=== PATIENT | female | born 1960 | race Caucasian/White ===

== ENCOUNTER 2022-12-25 14:41 | Outpatient (CLI) | payer BC, SELFPAY ==
--- NOTE | 2022-12-25 15:00 | CRLHL7_ITS ---
For Patients: As a result of the Century Cures Act, medical imaging exams and procedure reports are released immediately into your electronic medical record. You may view this report before your referring provider. If you have questions, please contact your health care provider. BILATERAL SCREENING MAMMOGRAM WITH COMPUTER-AIDED DETECTION AND TOMOSYNTHESIS TECHNIQUE: CC and MLO views were obtained. These mammographic images have been obtained using full-field digital technique. These mammographic images were interpreted with the benefit of computer-aided detection. Breast Tomosynthesis was used in this interpretation. COMPARISON FILM: 12/01/21, 07/26/20, 07/21/19. FINDINGS: The breasts are almost entirely fatty IMPRESSION: There is no radiographic evidence for malignancy. ASSESSMENT: BI-RADS Category 1: Negative RECOMMENDATION: Routine screening mammogram in 1 year. A lay language report of this examination will be provided to the patient. Lyndon Mackenzie M.D. Diagnostic/Nuclear Medicine Radiologist [email or web address] BRADLY/Dictated by: Lyndon Mackenzie MD @ 12/28/2022 8:08:00 AM (Electronically Signed)
== END 2022-12-25 14:42 | disposition home or self-care (01) ==
LOC: MAMMO 14:43
PROVIDERS: PCP Family Medicine; Visit Provider Family Medicine
DX: Z12.31 Encounter for screening mammogram for malignant neoplasm of breast (principal)
CPT/HCPCS: 77063; 77067

== ENCOUNTER 2022-12-30 07:34 | Outpatient (CLI) | payer BC, SELFPAY | END 2022-12-30 07:35 | disposition home or self-care (01) | LOC: NFLDREF 11:55 | PROVIDERS: PCP Family Medicine; Referring Provider Family Medicine; Visit Provider Family Medicine | DX: E53.8 Deficiency of other specified B group vitamins (principal); E03.9 Hypothyroidism, unspecified; I10 Essential (primary) hypertension; E78.5 Hyperlipidemia, unspecified; M19.90 Unspecified osteoarthritis, unspecified site; Z79.1 Long term (current) use of non-steroidal anti-inflammatories (NSAID) | CPT/HCPCS: 80053; 80061; 82306; 82607; 84443 ==

== ENCOUNTER 2023-06-30 09:18 | Outpatient (CLI) | payer BC, SELFPAY ==
--- OUTSIDE RECORDS SUMMARY | 2023-06-30 09:22 | XMS_ITS | Continuity of Care Document ---
Author Name Unknown Organization [facility] Address [address] [place] [address] Phone Care Team Providers Care Leather Parts Matcher Name Role Phone Shyla Del Cid MD Unavailable Unavailable Medications Medication Instructions Dosage Effective Dates (start - stop) Status Comments NASACORT AQ (unknown strength) Not Available - Active LOSARTAN POTASSIUM (unknown strength) Not Available - Active Procedures Procedure Date Office/Outpatient Visit,[facility], [facility] [place] X-Ray Exam Lower Spine 2-3 Views 2013 Office/outpatient visit,est, low 2007 Office consultation, moderate 8 X-ray exam lwr spine, min 4 views Advance Directives Directive Yes / No Effective Date File Name No Information Encounters Encounter Description Practice Location Reason(s) For Visit Diagnoses Date Provider Providers Copied on Encounter [facility], [address], [place], [place], [id number], [place] tel:[phone] [facility] No Information 6 Nehemias Mansfield. [facility], [address], [place], [place], [address] , [place]. tel:[phone] Office/Outpat ient Visit,[facility], [facility] Z [facility], [address], [place], [address], [place] tel:[phone] RUPAL - Cheli LOZOYA 2201 4 Danya Glynn. [facility], [address], [place], [address], [place]. tel:[phone] Office/outpat ient visit,est, low Z [facility], [address] [place], [place] [address], [place], [address], [place] tel:[phone] [employer] No Information Oct-2 200 8 Mehbod Anastasiiar. [facility], [address] [place] [address] [address], [place], [place], [address] , [place]. tel:[phone] Referring Provider: Shyla Del Cid, [facility] [address], [place], [address] . tel:[phone] Office consultation, moderate Z [facility], [address] [place] [address] [address], [place], [place], [facility], [place] tel:[phone] [employer] No Information Aug- 8 hbharry Samaniego [facility], [address] [place] [address] [address], [place], [place], [id number] , [place]. tel:[phone] Referring Provider: Shyla Del Cid, [facility] [address], [place], [address] . tel:[phone] Family History Family Member Type Diagnosis Age At Onset Problem (finding) Payers Payer name Insurance type Covered democrat ID Authoriza tion(s) No Information Social History Type Description Quantity Date Captured Comments Sex Female Smoking Status No Information Chief Complaint And Reason For Visit No Information Reason For Referral Reason For Referral No Information History Of Present Illness Encounter Date Complaint History Of Prese nt Illness No Information Functional Status Date Functional Assessmen t No Information Instructions Date Instruction Additional Infor mation No Information Assessments Type Assessment Date No Information Patient Care Teams Name Effective Dates (start - stop) Status Members No Information
== END 2023-06-30 09:19 | disposition home or self-care (01) ==
PROVIDERS: PCP Family Medicine; Visit Provider Family Medicine
DX: I10 Essential (primary) hypertension (principal); E03.9 Hypothyroidism, unspecified; E53.8 Deficiency of other specified B group vitamins
CPT/HCPCS: 80048; 84443

== ENCOUNTER 2024-01-17 07:29 | Outpatient (CLI) | payer BC, SELFPAY ==
--- OUTSIDE RECORDS SUMMARY | 2024-01-17 07:32 | XMS_ITS | Clinical Summary ---
Author Organization [employer] [facility] Address [place], [place] [address] Care Team Providers Care Ship'S Captain Name Role Phone Domonique Powell MD Primary Care Provider + Allergies No known active allergies Medications Medication Sig Dispensed Refills Start Date End Date Status celecoxib (CELEBREX) 200 mg capsule Take 1 capsule by mouth once daily with a meal. 30 capsule 0 08/08/2015 Active losartan (COZAAR) 25 mg tablet Take 1 tablet by mouth once daily. 0 08/08/2015 Active levothyroxine (SYNTHROID) 50 mcg tablet Take 1 tablet by mouth before breakfast. 0 08/08/2015 Active triamcinolone, 55 mcg each actuation, nasal (NASACORT) 55 mcg nasal spray Inhale 2 Sprays into both nostrils once daily. 16.5 g 0 08/08/2015 Active metroNIDAZOLE (METROGEL) 1 % gel Apply topically to affected area(s) once daily. 45 g 0 08/08/2015 Active mesalamine (CANASA) 1,000 mg suppositoryIndicati ons:Ulcerative (chronic) proctitis, without complications (HC) Insert 1 Suppository rectally at bedtime. 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 08/09/2015 Overview: Colonoscopy 07/2015 ulcerative proctitis repeat in 10 years Screen for colon cancer 07/14/2012 Overview: Colonoscopy 07/2012 normal repeat in 10 years Immunizations Name Administration Dates Next Due Influenza, IIV3 (Age >=3 years) 06/17/2015 Pneumococcal conj 13-Valent (Prevnar 13) 015 Tdap 11/26/2014 Social History Tobacco Use Types Packs/Day Years Used Date Smoking Tobacco: Former Smokeless Tobacco: Never Tobacco Cessation:Counseling Given: Yes Alcohol Use Standard Drinks/Week Comments Not Asked 0 (1 standard drink = 0.6 oz pur e alcohol) Sex and Gender Information Value Date Recorded Sex Assigned at Not on file Gender Identity Not on file Sexual Orientation Not on file Obstetrics History Last Filed Vital Signs Vital Sign Reading Time Taken Comments Blood Pressure 101/64 08/08/2015 8:18 AM CITY CARRIER Pulse 63 08/08/2015 8:18 AM CITY CARRIER Temperature - - Respiratory Rate - - Oxygen Saturation 100% 08/08/2015 8:18 AM CITY CARRIER Inhaled Oxygen Concentration - - Weight - - Height - - Body Mass Index - - Plan of Treatment Health Maintenance Due Date Last Done Comments Depression screening for age 12+ 1971 HIV for age 15-65 1974 BMI (ht and wt on same day) for age 18+ 1977 Hepatitis C screening for age 18-79 1977 Lipids for age 45-75 2004 Mammogram for age 45-75 2004 Zoster (shingles) series for age 50+ (1 of 2) 2009 Pap test for age 21-65 06/29/2022 9, 06/29/2019, 11/26/2014, Additional history exists COVID-19 vaccine series (2022- season) 2023 Influenza for age 50-64 03/12/2024 06/17/2015 Tetanus booster 11/26/2024 11/26/2014 Colonoscopy through age 75 08/08/202508/08, 08/08/2015, 07/14/2012, Additional history exists Pneumococcal series for age 6-64 Aged Out 11/26/2014 No longer eligible based on patient's age to complete this topic Tdap Completed 11/26/2014 Procedures Procedure Name Priority Date/Time Associated Diagnosis Comments LOG CUT OFF SAWYER THIN PREP PAP SCREEN IMAGED Routine 06/29/2019 3:30 PM CITY CARRIER from Last 3 Months or Most Recently Relevant to Health Maintenance Results * LOG CUT OFF SAWYER THIN PREP PAP SCREEN IMAGED (06/29/2019 3:30 PM CITY CARRIER) Case Report Gynecologic Cytology Report ? Case: [id number] ? Authorizing Provider: ??Domonique Powell MD ??Collected: ? 06/29/2019 1530 ? Ordering Location: ? [facility] ?Received: ?07/03/2019 0925 ? First Screen: ?Gloria Summers ? Specimen: ?LOG CUT OFF SAWYER ThinPrep Vial Screening, Cervical/Vaginal ? 07/17/2019 10:33 AM [facility] INTERPRETATION/ RESULT NEGATIVE FOR INTRAEPITHELIAL LESION OR MALIGNANCY (NIL) (none) 07/17/2019 10:33 AM [facility] IMEN ADEQUACY Satisfactory for evaluation Endocervical cells cannot be evaluated due to severe atrophy 07/17/2019 10:33 AM [facility] HPV REQUEST HPV and PAP 07/17/2019 10:33 AM [facility] Menstrual Status 07/17/2019 10:33 AM [facility] Comment:menopause Additional Information 07/17/2019 10:[address] [facility] Comment: Interpreted at [facility] - [address], [place] [address] Automated Review Successful 07/17/2019 10:[address] [facility] Comment:Specimen processed s uccessfully by automated pharmacologist device, CitizenginePrep Imaging System, [employer] ANCILLARY TESTING LOG CUT OFF SAWYER HPV Ordered, Please see separate report 07/17/2019 10:[address] [facility] Note The pap test is a screening technique, not a diagnostic procedure. It is used primarily to screen for squamous cancers and precursor lesions. Published studies have shown that it is subject to both false negative and false positive results. The pap test should not be used as the sole means to diagnose or exclude pre-malignant and malignant lesions. 07/17/2019 10:33 AM [facility] Other (Cervical/Vagina l) 06/29/2019 3:30 PM CITY CARRIER 07/03/2019 9:25 AM CITY CARRIER Domonique Powell MD PATHOLOGY/CYTOLO GY [facility] [address] [place] [address], [place] from Last 3 Months or Most Recently Relevant to Health Maintenance Care Teams Ship'S Captain Relationship Specialty Start Date End Date Domonique Powell MD [address] [place] [address] PCP - General Family Practice 02/04/18
--- OUTSIDE RECORDS SUMMARY | 2024-01-17 07:32 | XMS_ITS | Continuity of Care Document ---
Author Organization [facility] Address [address] [place] [address] Phone Care Team Providers Care Dance Artist Name Role Phone Shyla Del Cid MD Unavailable Unavailable Medications Medication Instructions Dosage Effective Dates (start - stop) Status Comments LOSARTAN POTASSIUM (unknown strength) Not Available - Active NASACORT AQ (unknown strength) Not Available - Active Procedures Procedure Date Office/Outpatient Visit,[facility] 2013 X-Ray Exam Lower Spine 2-3 Views 2013 Office/outpatient visit,est, low 2007 Office consultation, moderate 8 X-ray exam lwr spine, min 4 views Advance Directives Directive Yes / No Effective Date File Name No Information Encounters Encounter Description Practice Location Reason(s) For Visit Diagnoses Date Provider Providers Copied on Encounter [facility], [address], [place], [place], [id number], [place] tel:[phone] [facility] No Information 6 Nehemias Mansfield. [facility], [address] [place] [address] [address], [place], [place], [address] , [place]. tel:[phone] Office/Outpat ient Visit,[facility] Z [facility], [address], [place], [address], [place] tel:[phone] RUPAL - Piper LUMBAGO 2 4 Danya Glynn. [facility], [address], [place], [address], [place]. tel:[phone] Office/outpat ient visit,est, low Z [facility], [address] [place], [place] [address] [address], [place], [address], [place] tel:[phone] [facility] No Information Oct-200 8 Nehemias Laurentr. [facility], [address] [place] [address] [address], [place], [place], [id number] , [place]. tel:[phone] Referring Provider: Shyla Del Cid, [facility] [address], [place], [address] . tel:[phone] Office consultation, moderate Z [facility], [address] [place], [place] [address], [place], [place], [facility], [place] tel:[phone] [facility] No Information 8 Neheimas Samaniego [facility], [address] [place] [address] [address], [place], [place], [address] , [place]. tel:[phone] Referring Provider: Shyla Del Cid, [facility] [address], [place], [address] . tel:[phone] Family History Family Member Type Diagnosis Age [...]
--- NOTE | 2024-01-17 07:45 | CRLHL7_ITS ---
For Patients: As a result of the Cures Act, medical imaging exams and procedure reports are released immediately into your electronic medical record. You may view this report before your referring provider. If you have questions, please contact your health care provider. BILATERAL SCREENING MAMMOGRAM WITH COMPUTER-AIDED DETECTION AND TOMOSYNTHESIS TECHNIQUE: CC and MLO views were obtained. These mammographic images have been obtained using full-field digital technique. These mammographic images were interpreted with the benefit of computer-aided detection. Breast Tomosynthesis was used in this interpretation. COMPARISON FILM: 12/25/22, 12/01/21, 07/26/20. FINDINGS: The breasts are almost entirely fatty. IMPRESSION: There is no radiographic evidence for malignancy. ASSESSMENT: BI-RADS Category 1: Negative RECOMMENDATION: Routine screening mammogram in 1 year. A lay language report of this examination will be provided to the patient. Lyndon Mackenzie M.D. Diagnostic/Nuclear Medicine Radiologist [email or web address] JEN/pillo SP/Dictated by: Lyndon Mackenzie MD @ 01/20/2024 8:30:00 AM (Electronically Signed)
== END 2024-01-17 07:30 | disposition home or self-care (01) ==
LOC: MAMMO 07:30
PROVIDERS: PCP Family Medicine; Visit Provider Family Medicine
DX: Z12.31 Encounter for screening mammogram for malignant neoplasm of breast (principal); Z00.00 Encounter for general adult medical examination without abnormal findings; R03.0 Elevated blood-pressure reading, without diagnosis of hypertension; E53.8 Deficiency of other specified B group vitamins; E78.5 Hyperlipidemia, unspecified; I10 Essential (primary) hypertension; E03.9 Hypothyroidism, unspecified; R79.89 Other specified abnormal findings of blood chemistry; R53.83 Other fatigue; M85.852 Other specified disorders of bone density and structure, left thigh; Z79.1 Long term (current) use of non-steroidal anti-inflammatories (NSAID); R74.8 Abnormal levels of other serum enzymes
CPT/HCPCS: 77063; 77067; 80053; 80061; 82306; 82607; 84443

== ENCOUNTER 2024-02-10 14:12 | Outpatient (CLI) | payer BC, SELFPAY ==
--- OUTSIDE RECORDS SUMMARY | 2024-02-10 14:22 | XMS_ITS | Continuity of Care Document ---
Author Organization [facility] Address [address] [place] [address] Phone Care Team Providers Care Cellophane Wrapping Examiner Name Role Phone Shyla Del Cid MD Unavailable Unavailable Medications Medication Instructions Dosage Effective Dates (start - stop) Status Comments NASACORT AQ (unknown strength) Not Available - Active LOSARTAN POTASSIUM (unknown strength) Not Available - Active Procedures Procedure Date Office/Outpatient Visit,[facility] 2013 X-Ray Exam Lower Spine 2-3 Views 2013 Office/outpatient visit,est, low 2007 Office consultation, moderate 8 X-ray exam lwr spine, min 4 views Advance Directives Directive Yes / No Effective Date File Name No Information Encounters Encounter Description Practice Location Reason(s) For Visit Diagnoses Date Provider Providers Copied on Encounter [facility], [address], [place], [place], [id number], [place] tel:[phone] 2010 [facility] No Information 6 Nehemias Mansfield. [facility], [address] [place] [address] [address], [place], [place], [address] , [place]. tel:[phone] Office/Outpat ient Visit,[facility] Z [facility], [address], [place], [address], [place] tel:[phone] RUPAL - Piper LUMBAGO 2 4 Danya Glynn. [facility], [address], [place], [address], [place]. tel:[phone] Office/outpat ient visit,est, low Z [facility], [address] [place], [place] [address] [address], [place], [address], [place] tel:[phone] [employer] No Information Oct-200 8 Nehemias Laurentr. [facility], [address] [place] [address] [address], [place], [place], [id number] , [place]. tel:[phone] Referring Provider: Shyla Del Cid, [facility] [address], [place], [address] . tel:[phone] Office consultation, moderate Z [facility], [address] [place], [place] [address] [address], [place], [place], [facility], [place] tel:[phone] [employer] No Information 8 Nehemias Samaniego [facility], [address] [place] [address] [address], [place], [place], [id number] , [place]. tel:[phone] Referring Provider: Shyla Del Cid, [facility] [address], [place], [address] . tel:[phone] Family History Family Member Type Diagnosis Age At Onset Problem (finding) Payers Payer name Insurance type Covered libertarian ID Authoriza tion(s) No Information Social History [...]
--- OUTSIDE RECORDS SUMMARY | 2024-02-10 14:22 | XMS_ITS | Clinical Summary ---
Author Organization [employer] [facility] Address [place], [place] [address] Care Team Providers Care Door Attendant Name Role Phone Domonique Powell MD Primary [...] Colonoscopy 07/2012 normal repeat in 10 years Encounters Date Type Department Care Team Description 02/10/2024 Telephone [facility] [address] [place], [place] [id number] Clinic, No Pcp Or Screening (COUGH/TB) 02/09/2024 Transcribe Orders [facility] [address] [place], [place] [id number] Og Fisher MD 01/20/2024 Lab Requisition [facility] [phone] Domonique Powell MD from Last 3 Months Immunizations Name Administration Dates Next Due Influenza, [...] Comments Blood Pressure 101/64 08/08/2015 8:18 AM SPARE PERSON Pulse 63 08/08/2015 8:18 AM SPARE PERSON Temperature - - Respiratory Rate - - Oxygen Saturation 100% 08/08/2015 8:18 AM SPARE PERSON Inhaled Oxygen Concentration - - Weight - [...] for age 50+ (1 of 2) 2009 COVID-19 vaccine series (2022-24 season) 2023 Influenza for age 50-64 03/12/2024 06/17/2015 Tetanus booster 11/26/2024 11/26/2014 Colonoscopy through age 75 08/08/202508/08, 08/08/2015, 07/14/2012, Additional history exists Pap test for age 21-65 01/19/2027 , 01/20/2024, 06/29/2019, Additional history exists Pneumococcal series for age 6-64 Aged Out 11/26/2014 No longer eligible based on patient's age to complete this topic Tdap Completed 11/26/2014 Procedures Procedure Name Priority Date/Time Associated Diagnosis Comments LAB TRACKING EVENT Routine 01/20/2024 8: 00 AM CDT VOICE ENGINEER THIN PREP PAP SCREEN IMAGED Routine 01/20/2024 8:00 AM CDT HPV THIN PREP Routine 01/20/2024 8:00 AM CDT from Last 3 Months Results * LAB TRACKING EVENT (01/20/2024 8:00 AM CDT) Other (Other) Client Collect / Unknown 01/20/2024 8:00 AM CDT 01/20/2024 3:52 PM CDT Domonique Powell MD LAB BILL ONLY [facility] [address] [place] [address], * VOICE ENGINEER THIN PREP PAP SCREEN IMAGED (01/20/2024 8:00 AM CDT) Case Report Gynecologic Cytology Report ? Case: [id number] ? Authorizing Provider: ??Domonique Powell MD ??Collected: ? 01/20/2024 0800 ? Ordering Location: ? [facility] ?Received: ?01/24/2024 0755 ? First Screen: ?Vincent Ferguson ? Specimen: ?VOICE ENGINEER ThinPrep Vial Screening, Cervical/Vaginal ? 01/27/2024 12:37 PM CDT [facility] INTERPRETATION/ RESULT NEGATIVE FOR INTRAEPITHELIAL LESION OR MALIGNANCY (NIL) (none) 01/27/2024 12:37 PM CDT [facility] IMEN ADEQUACY Satisfactory for evaluation Endocervical component present 01/27/2024 12:37 PM CDT [facility] EN[facility] LAB[facility] HPV REQUEST HPV and PAP 01/27/2024 12:37 PM CDT [facility] Date of LMP 01/27/2024 12:37 PM CDT [facility] Comment:N/A Last Pap Date 06/29/2019 01/27/2024 12:37 PM CDT [facility] Last Pap Result NIL 12:37 PM CDT [facility] Abnormal Pap or [place] Bx in last 5 years No 01/27/2024 12:37 PM CDT [facility] Menstrual Status Postmenopausal 01/27/2024 12:37 PM CDT [facility] [place] Bx Done Today No 01/27/2024 12:37 PM CDT [facility] Additional Information 01/27/2024 12:37 PM CDT [facility] Comment: Interpreted at [facility] - [address], [place] [address] Automated Review Successful 01/27/2024 12:37 PM CDT [facility] Comment:Specimen processed s uccessfully by automated holistic pulser device, ThinPrep Imaging System, [employer] ANCILLARY TESTING VOICE ENGINEER HPV Ordered, Please see separate report 01/27/2024 12:37 PM CDT [facility] Note The pap test is a screening technique, not a diagnostic procedure. It is used primarily to screen for squamous cancers and precursor lesions. Published studies have shown that it is subject to both false negative and false positive results. The pap test should not be used as the sole means to diagnose or exclude pre-malignant and malignant lesions. 01/27/2024 12:37 PM CDT [facility] Other (Cervical/Vagina l) 01/20/2024 8:00 AM CDT 01/24/2024 7:55 AM CDT Domonique Powell MD PATHOLOGY/CYTOLO GY [facility] [address] [place] [address], * HPV HIGH RISK (01/20/2024 8:00 AM CDT) TYPE 16 Negative Negative 01/26/2024 2:36 PM CDT [facility] TYPE 18 Negative Negative 01/26/2024 2:36 PM CDT [facility] OTHER HIGH RISK TYPES Negative Negative 01/26/2024 2:36 PM CDT [facility] Other (Cervical/Vagina l) 01/20/2024 8:00 AM CDT 01/24/2024 7:55 AM CDT Narrative [facility] - 01/26/2024 2:36 PM CDT HPV types 16, 18, 31, 33, 35, 39, 45, 51, 52, 56, 58, 59, 66 and 68 DNA were undetectable or below the pre-set threshold. Methodology: [employer] 4800 HPV Test Domonique Powell MD MICROBIOLOGY [facility] [address] [place] [address], from Last 3 Months Care Teams Door Attendant Relationship Specialty Start Date End Date Domonique Powell MD [address] [place] [address] PCP - General Family Practice 02/04/18
--- NOTE | 2024-02-10 14:30 | CRLHL7_ITS ---
For Patients: As a result of the Century Cures Act, medical imaging exams and procedure reports are released immediately into your electronic medical record. You may view this report before your referring provider. If you have questions, please contact your health care provider. DXA BONE MINERAL DENSITY STUDY Reason for exam: Screening. Current height (inches): 64 Weight (lbs.): 125 Menopause age: 47 Ethnicity: White 1. Have you had a previous hip or vertebral fracture? No. 2. Have you had any fractures during your adult life which did not result from significant trauma (e.g., auto accident)? No. 3. Did either of your parents have a hip fracture? No. 4. Do you smoke? No. 5. Have you ever taken Glucocorticoids? No. 6. Do you have rheumatoid arthritis? No. 7. Do you have secondary osteoporosis? No. 8. Do you drink 3 or more alcoholic drinks per day? No. 9. Are you being treated for osteoporosis? No. 10. Have you ever taken any of the following medications: Actonel, Evista, Fosamax, Miacalcin, Reclast, Boniva, Forteo, HRT (i.e., estrogen/hormone therapy), Protelos, Prolia, Vitamin D, Calcium, other ??? please specify. ANSWER: Yes; vitamin D, calcium, HRT (estrogen/hormone therapy). 11. Do you have any of the following medical conditions: Anorexia or bulimia, asthma or emphysema, end stage renal disease, hyperparathyroidism, any seizure disorders, cancer, inflammatory bowel diseases, hysterectomy, other ??? please specify. ANSWER: No. 12. What was your maximum height (inches)? 64. 13. Do you perform weightbearing exercise regularly? No. 14. Do you regularly consume dairy products? No. 15. Do you drink caffeinated beverages? Yes. 16. At what age did your period start? 11. 17. Are you premenopausal? No. 18. How many full-term pregnancies have you had? 3. 19. Have you ever missed your period for more than 6 months in a row (not including or menopause)? No. TECHNIQUE: Bone mineral density study was performed using the [email or web address]. FINDINGS: The results of the study expressed as bone mineral density (BMD) are as follows: Lumbar Spine L1 to L3: BMD: 1.079 g/cm2. T-score: 0.6. Z-score: 2.2. Neck Left: BMD: 0.729 g/cm2. T-score: -1.1. Z-score: 0.4. Right: BMD: 0.775 g/cm2. T-score: -0.7. Z-score: 0.8. Total Left: BMD: 0.786 g/cm2. T-score: -1.3. Z-score: -0.1. Right: BMD: 0.852 g/cm2. T-score: -0.7. Z-score: 0.5. IMPRESSION: Osteopenia. COMPARISON: Compared with scan of 08/28/2020, the bone mineral density has increased by 5.6% at the spine and increased by 4.0% at the hip. Compared with scan of 04/19/2017, the bone mineral density has decreased by 11.2% at the spine and decreased by 1.8% at the hip. *Comparison exams done prior to 12/2019 were performed on different unit, [facility]. FRAX 10-year Fracture Risk Major Osteoporotic Fracture: 7.3% Hip Fracture: 0.6% Reported Risk Factors: [place] () Neck BMD = 0.729, BMI = 21.5. WAYLON MENENDEZ M.D. Diagnostic Radiologist [email or web address] Transcribed: 3:[address]/Dictated by: Waylon Menendez MD @ 02/11/2024 12:11:00 PM (Electronically Signed)
--- NOTE | 2024-02-10 15:00 | CRLHL7_ITS ---
For Patients: As a result of the Century Cures Act, medical imaging exams and procedure reports are released immediately into your electronic medical record. You may view this report before your referring provider. If you have questions, please contact your health care provider. CLINICAL INFORMATION: Chronic cough. TECHNIQUE: Noncontrast CT of the chest was obtained. Coronal and sagittal reformatted images were obtained. Radiation Dose Estimate (Total Exam DLP): 312 mGy-cm. COMPARISON: None. FINDINGS: Chest: Thyroid: Visualized portions are unremarkable. Lungs: No focal airspace opacities or pleural effusions. Mild bibasilar dependent atelectatic changes. 4 mm left lower lobe perifissural nodule (series 5, image 41) Heart/Pericardium: Unremarkable. Lymph Nodes: Calcified mediastinal and left hilar lymph nodes. No abnormal lymphadenopathy in the chest. Upper Abdomen : No acute findings in the visualized portions. Musculoskeletal: Degenerative changes the spine. IMPRESSION: 1. No acute findings in the chest. 2. 4 mm left lower lobe perifissural pulmonary nodule. No further follow-up is required in low risk patients. In high risk patients can consider chest CT follow-up in 12 months. Please note that all CT scans at this facility use dose modulation, iterative reconstruction, and/or weight-based dosing when appropriate to reduce radiation dose to as low as reasonably achievable. Dictated by Ronan Matias MD @ 02/14/2024 11:30:03 AM (Electronically Signed)
--- NOTE | 2024-02-10 15:30 | CRLHL7_ITS ---
For Patients: As a result of the Cures Act, medical imaging exams and procedure reports are released immediately into your electronic medical record. You may view this report before your referring provider. If you have questions, please contact your health care provider. INDICATION: Sinusitis. Headache. COMPARISON: None. TECHNIQUE: Noncontrast CT of the paranasal sinuses. FINDINGS: Large mucous tension cyst mucosal thickening of the right maxillary sinus with near complete opacification. Opacification the right ostiomeatal complex. Small amount of fluid and mild mucosal thickening of the left maxillary sinus. Partial opacification of the left ostiomeatal complex. Slight upward tilt of the right aspect of the hard palate. Nasal cavity is clear. Becky bullosa on the left. Frontal sinuses are clear. Mild mucosal thickening within scattered posterior ethmoid air cells. Partial opacification the sphenoid ostia. Sphenoid sinuses are clear. Mastoid air cells are clear. No facial fractures. Normal orbits bilaterally. IMPRESSION: 1. Near complete opacification of the right maxillary sinus. Small amount of fluid and mucosal thickening of the left maxillary sinus. Opacification of the right ostiomeatal complex. 2. Mild mucosal thickening within scattered posterior ethmoid air cells. 3. No facial fractures Please note that all CT scans at this facility use dose modulation, iterative reconstruction, and/or weight-based dosing when appropriate to reduce radiation dose to as low as reasonably achievable. Dictated by Kyle Niño MD @ 02/13/2024 2:15:22 PM (Electronically Signed)
== END 2024-02-10 14:13 | disposition home or self-care (01) ==
LOC: RAD 14:12
PROVIDERS: PCP Family Medicine; Visit Provider Otolaryngology
DX: J32.9 Chronic sinusitis, unspecified (principal); J32.0 Chronic maxillary sinusitis; Z13.820 Encounter for screening for osteoporosis; M85.89 Other specified disorders of bone density and structure, multiple sites; M85.852 Other specified disorders of bone density and structure, left thigh; R05.3 Chronic cough; R51.9 Headache, unspecified
CPT/HCPCS: 70486; 71250; 77080

== ENCOUNTER 2024-06-09 08:46 | Outpatient (CLI) | payer BC, SELFPAY ==
--- OUTSIDE RECORDS SUMMARY | 2024-06-09 14:29 | XMS_ITS | Continuity of Care Document ---
Author Organization [facility] Address [address] [place] [address] Phone Care Team Providers Care Assistant Manager Trainee Name Role Phone Shyla Del Cid MD Unavailable Unavailable Medications Medication Instructions Dosage Effective Dates (start - stop) Status Comments LOSARTAN POTASSIUM (unknown strength) Not Available - Active NASACORT AQ (unknown strength) Not Available - Active Procedures Procedure Date Office/Outpatient Visit,[facility] 2013 X-Ray Exam Lower Spine 2-3 Views 2013 Office/outpatient visit,est, low 2007 Office consultation, moderate 8 X-ray exam lwr spine, min 4 views Advance Directives Directive Yes / No Effective Date File Name No Information Encounters Encounter Description Practice Location Reason(s) For Visit Diagnoses Date Provider Providers Copied on Encounter [facility], [address], [place], [place], [id number], [place] tel:[phone] [facility] No Information 6 Nehemias Mansfield. [facility], [address] [place] [address] [address], [place], [place], [id number] , [place]. tel:[phone] Office/Outpat ient Visit,[facility] Z [facility], [address], [place], [address], [place] tel:[phone] [facility] 2 4 Danya Glynn. [facility], [address], [place], [address], [place]. tel:[phone] Office/outpat ient visit,est, low Z [facility], [address] [place], [place] [address], [place], [address], [place] tel:[phone] [facility] No Information Oct-200 8 Nehemias Laurentr. [facility], [address] [place] [address] [address], [place], [place], [id number] , [place]. tel:[phone] Referring Provider: Shyla Del Cid, [facility] [address], [place], [address] . tel:[phone] Office consultation, moderate Z [facility], [address] [place], [place] [address], [place], [place], [facility], [place] tel:[phone] [facility] No Information 8 Nehemias Samaniego [facility], [address] [place] [address] [address], [place], [place], [id number] , [place]. tel:[phone] Referring Provider: Shyla Del Cid, [facility] [address], [place], [address] . tel:[phone] Family History Family Member Type Diagnosis Age [...]
--- OUTSIDE RECORDS SUMMARY | 2024-06-09 14:29 | XMS_ITS | Clinical Summary ---
Author Organization [facility] Address [place], [place] [address] Care Team Providers Care Amplifier Mechanic Name Role Phone Domonique Powell MD Primary Care Provider + Allergies Active Allergy Reactions Criticality Noted Date Comments Latex Rash 05/16/2024 rashes, hives, edema Medications Medication Sig Dispensed Refills Start Date End Date Status celecoxib (CELEBREX) 200 mg capsule Take 1 capsule by mouth once daily with a meal. 30 capsule 0 6 Active losartan (COZAAR) 25 mg tablet Take 1 tablet by mouth once daily. 0 6 Active levothyroxine (SYNTHROID) 50 mcg tablet Take 1 tablet by mouth before breakfast. 0 6 Active triamcinolone, 55 mcg each actuation, nasal (NASACORT) 55 mcg nasal spray Inhale 2 Sprays into both nostrils once daily. 16.5 g 0 6 Active metroNIDAZOLE (METROGEL) 1 % gel Apply topically to affected area(s) once daily. 45 g 0 6 Active estradioL (VAGIFEM) 10 mcg tab vaginal tablet INSERT 1 TABLET VAGINALLY 2 TIMES A WEEK 4 Active Xiidra 5 % ophthalmic solution 4 Active rosuvastatin (CRESTOR) 5 mg tablet Take 5 mg by mouth once daily. 4 Active traZODone (DESYREL) 100 mg tablet Active cetirizine HCl (ZYRTEC ORAL) Take by mouth. Active mesalamine (CANASA) 1,000 mg suppositoryIndicat ions:Ulcerative (chronic) proctitis, without complications (HC) Insert 1 Suppository rectally at bedtime. 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 08/09/2015 Overview (08/09/2015): Colonoscopy 07/2015 ulcerative proctitis repeat in 10 years Screen for colon cancer 07/14/2012 Overview (07/14/2012): Colonoscopy 07/2012 normal repeat in 10 years Encounters Date Type Department Care Team Description 05/24/2024 Orders Only [facility] [address] [place] [phone] Merlyn Pena MD 1 scan: (1-Ord) 05/16/2024 05/16/2024 1:00 PM LINING REPAIRER Office Visit [facility] [address] [place] [phone] Merlyn Pena MD Consult (Pulmonary Consult- Go over scans and has had cough for a few years. Cough is productive. Patient has questionos in regards to [place] Fever. ) 05/15/2024 Travel from Last 3 Months Immunizations Name Administration Dates Next Due Influenza, IIV3 (Age >=3 years) 06/17/2015 Pneumococcal conj 13-Valent (Prevnar 13) 015 Tdap 11/26/2014 Social History Tobacco Use Types Packs/Day Years Used Date Smoking Tobacco: Former Cigarettes Smokeless Tobacco: Never Tobacco Cessation:Counseling Given: Not Answered Comments:Stopped smoking over 20 years ago Alcohol Use Standard Drinks/Week Comments Not Asked 0 (1 standard drink = 0.6 oz pur e alcohol) Sex and Gender Information Value Date Recorded Sex Assigned at Not on file Gender Identity Not on file Sexual Orientation Not on file Obstetrics History Last Filed Vital Signs Vital Sign Reading Time Taken Comments Blood Pressure 124/80 05/16/2024 1:05 PM LINING REPAIRER Pulse 79 05/16/2024 1:05 PM LINING REPAIRER Temperature 36.3 C (97.3 F) 05/16/2024 1:05 PM LINING REPAIRER Respiratory Rate - - Oxygen Saturation 97% 05/16/2024 1:0 5 PM LINING REPAIRER Inhaled Oxygen Concentration - - Weight 55.8 kg (123 lb) 05/16/2024 1:05 PM LINING REPAIRER patient reported Height 162.6 cm (5' 4) 05/16/2024 1:05 PM LINING REPAIRER patient reported Body Mass Index 21.11 05/16/2024 1:05 PM LINING REPAIRER Plan of Treatment Health Maintenance Due Date Last Done Comments Depression screening for age 12+ 1971 HIV for age 15-65 1974 Hepatitis C screening for age 18-79 1977 Lipids for age 45-75 2004 Mammogram for age 45-75 2004 Zoster (shingles) series for age 50+ (1 of 2) 2009 Influenza for age 50-64 03/12/2024 06/17/2015 Tetanus booster 11/26/2024 11/26/2014 BMI (ht and wt on same day) for age 18+ 05/16/2025 05/16/2024 Colonoscopy through age 75 08/08/202508/08, 08/08/2015, 07/14/2012, Additional history exists Pap test for age 21-65 01/19/2027 , 01/20/2024, 06/29/2019, Additional history exists Pneumococcal series for age 6-64 Aged Out 11/26/2014 No longer eligible based on patient's age to complete this topic Tdap Completed 11/26/2014 COVID-19 vaccine series Completed 05/04/20, 05/05/2023, 05/31/2022, Additional history exists Procedures Procedure Name Priority Date/Time Associated Diagnosis Comments COMPLETE PFT SPIROMETRY LUNG VOL DIFFUSION Routine 05/16/2024 12:00 AM LINING REPAIRER Chronic cough HPV HIGH RISK Routine 01/20/2024 8:00 AM CDT from Last 3 Months or Most Recently Relevant to Health Maintenance Results * COMPLETE PFT SPIROMETRY LUNG VOL DIFFUSION (05/16/2024 12:00 AM LINING REPAIRER) Merlyn Pena MD PFT ORD * HPV HIGH RISK (01/20/2024 8:00 AM CDT) TYPE 16 Negative Negative 01/26/2024 2:36 PM CDT [facility] TYPE 18 Negative Negative 01/26/2024 2:36 PM CDT [facility] OTHER HIGH RISK TYPES Negative Negative 01/26/2024 2:36 PM CDT [facility] TRA [facility]ORAT[facility] Other (Cervical/Vagina l) 01/20/2024 8:00 AM CDT 01/24/2024 7:55 AM CDT Narrative [facility] - 01/26/2024 2:36 PM CDT HPV types 16, 18, 31, 33, 35, 39, 45, 51, 52, 56, 58, 59, 66 and 68 DNA were undetectable or below the pre-set threshold. Methodology: Anjum Meghna 4800 HPV Test Domonique Powell MD [facility]CRO[facility]OLOGY [facility] [address] [place] [address], from Last 3 Months or Most Recently Relevant to Health Maintenance Care Teams Amplifier Mechanic Relationship Specialty Start Date End Date Domonique Powell MD [address] [place] [address] PCP - General Family Practice 02/04/18
== END 2024-06-09 08:47 | disposition home or self-care (01) ==
LOC: NFLDREF 14:27
PROVIDERS: PCP Family Medicine; Referring Provider Family Medicine; Visit Provider Family Medicine
DX: R74.8 Abnormal levels of other serum enzymes (principal); M15.9 Polyosteoarthritis, unspecified; R53.83 Other fatigue; Z79.1 Long term (current) use of non-steroidal anti-inflammatories (NSAID)
CPT/HCPCS: 80053

== ENCOUNTER 2025-01-22 07:40 | Outpatient (CLI) | payer MEDICARE, BC, SELFPAY | END 2025-01-22 07:41 | disposition home or self-care (01) | LOC: NFLDREF 01-23 15:19 | PROVIDERS: PCP Family Medicine; Referring Provider Family Medicine; Visit Provider Family Medicine | DX: E53.8 Deficiency of other specified B group vitamins (principal); E78.5 Hyperlipidemia, unspecified; M85.852 Other specified disorders of bone density and structure, left thigh; E03.9 Hypothyroidism, unspecified; R79.89 Other specified abnormal findings of blood chemistry; Z79.1 Long term (current) use of non-steroidal anti-inflammatories (NSAID); Z79.899 Other long term (current) drug therapy | CPT/HCPCS: 80053; 80061; 82306; 82607; 84443 ==

== ENCOUNTER 2025-02-12 09:46 | Outpatient (CLI) | payer MEDICARE, BC, SELFPAY ==
--- NOTE | 2025-02-12 10:00 | CRLHL7_ITS ---
For Patients: As a result of the Century Cures Act, medical imaging exams and procedure reports are released immediately into your electronic medical record. You may view this report before your referring provider. If you have questions, please contact your health care provider. Indication: Chronic cough Technique: A noncontrast CT chest Please note that all CT scans at this facility use dose modulation, iterative reconstruction, and/or weight-based dosing when appropriate to reduce radiation dose to as low as reasonably achievable. Comparison: 02/10/2024 Findings: Calcified subcarinal and left hilar lymph nodes. No pleural or pericardial effusion. Calcified granulomas in the spleen. Visualized thyroid is unremarkable. No fracture. Calcified granuloma in the lingula near the hilum. Stable perifissural nodule on the left measuring 4 millimeters, 3/55. No infiltrate or edema. No pneumothorax. No interlobular septal thickening. No bronchiectasis. Impression: Sequela of granulomatous disease with calcified subcarinal and left hilar lymph nodes along with calcified splenic granulomas and calcified lingular nodule. No airspace disease or fibrosis. Please note that all CT scans at this facility use dose modulation, iterative reconstruction, and/or weight-based dosing when appropriate to reduce radiation dose to as low as reasonably achievable. Dictated by Waylon Sanford MD @ 02/12/2025 3:29:18 PM (Electronically Signed)
== END 2025-02-12 09:47 | disposition home or self-care (01) ==
LOC: CT 09:52
PROVIDERS: PCP Family Medicine; Visit Provider Family Medicine
DX: R05.3 Chronic cough (principal)
CPT/HCPCS: 71250

== ENCOUNTER 2025-06-25 09:00 | Outpatient (CLI) | payer MEDICARE, BC, SELFPAY ==
--- NOTE | 2025-06-25 09:15 | CRLHL7_ITS ---
For Patients: As a result of the Century Cures Act, medical imaging exams and procedure reports are released immediately into your electronic medical record. You may view this report before your referring provider. If you have questions, please contact your health care provider. INDICATION: BILATERAL SCREENING MAMMOGRAM, ASYMPTOMATIC 64 Y/O FEMALE COMPARISON: 01/17/2024, 12/25/2022, 12/01/2021 TECHNIQUE: Digital mammogram in CC and MLO projections including computer-aided detection (CAD) and tomosynthesis. BREAST COMPOSITION: There are scattered areas of fibroglandular density. FINDINGS: No suspicious findings. ASSESSMENT: BI-RADS 1 Negative RECOMMENDATION: Annual screening mammogram. A lay language report of this examination will be provided to the patient. Dictated by: Waylon Sanford MD @ 06/25/2025 10:54:44 (Electronically Signed)
== END 2025-06-25 09:01 | disposition home or self-care (01) ==
LOC: MAMMO 09:00
PROVIDERS: PCP Family Medicine; Visit Provider Family Medicine
DX: Z12.31 Encounter for screening mammogram for malignant neoplasm of breast (principal)
CPT/HCPCS: 77063; 77067